=== PATIENT | male | born 1980 | race Caucasian/White ===

== ENCOUNTER 2016-12-26 03:49 | Emergency (ER) | payer SELFPAY ==
[~2016-12-26] VITALS: Ht 160 cm; Wt 69.5 kg
[2016-12-26 03:55] VITALS: Ht 160 cm; Wt 69.5 kg
--- NOTE | 2016-12-26 04:08 | ERA ---
ER Documentation Chief Complaint Date/Time DATE: 12/26/16 TIME: 04:08 Chief Complaint Suicidal thought HPI The patient is 36-year-old male, presenting to the ER because of suicidal thoughts. He believes that somebody is going to hurt him. He has been drinking and doing cocaine. He is very evasive during history. The mother stated that he was suicidal and hallucinated. He also complained of minimal epigastric abdominal pain intermittently for the last 3 weeks, denies nausea, vomiting, dysuria, diarrhea, constipation Past medical/surgical history: None ROS All systems reviewed and are negative except as per history of present illness. Allergies Allergies: Coded Allergies: No Known Drug Allergies (Verified Allergy, Unknown, 12/26/16) Physical Exam Vitals Vital Signs Date Time Temp Pulse Resp B/P Pulse Ox O2 Delivery O2 Flow Rate FiO2 12/26/16 03:55 98.6 89 20 159/90 97 Physical Exam Const: No acute distress. Head: Atraumatic. Eyes: Normal Conjunctiva. ENT: Normal External Ears, Nose and Mouth. Neck: Full range of motion. No meningismus. Resp: Clear to auscultation bilaterally. Cardio: Regular rate and rhythm, no murmurs. Abd: Soft, non distended, normal bowel sounds, non tender. Skin: No petechiae or rashes. Back: No midline or flank tenderness. Ext: No cyanosis, or edema. Neur: Awake and alert. No focal deficit Psych: Normal Mood and Affect. Result Diagram: 12/26/16 0432 Results 24 hrs Laboratory Tests Test 12/26/16 04:32 White Blood Count 9.310^3/ul Red Blood Count 5.0210^6/ul Hemoglobin 15.0g/dl Hematocrit 44.2% Mean Corpuscular Volume 88.0fl Mean Corpuscular Hemoglobin 29.9pg Mean Corpuscular Hemoglobin Concent 33.9g/dl Red Cell Distribution Width 12.5% Platelet Count 69702^3/UL Mean Platelet Volume 9.6fl Neutrophils % 66.2% Lymphocytes % 23.4% Monocytes % 7.7% Eosinophils % 1.8% Basophils % 0.5% Nucleated Red Blood Cells % 0.0/100WBC Neutrophils # 6.210^3/ul Lymphocytes # 2.210^3/ul Monocytes # 0.710^3/ul Eosinophils # 0.210^3/ul Basophils # 0.110^3/ul Nucleated Red Blood Cells # 0.010^3/ul Current Medications Medications (Trade) Dose Ordered Sig/Milena Route PRN Reason Start Time Stop Time Status Last Admin Dose Admin Pantoprazole (Protonix Iv) 40 mg ONCE ONCE IV 12/26/16 04:30 12/26/16 04:31 DC 12/26/16 04:53 Morphine Sulfate (morphine) 2 mg ONCE ONCE IV 12/26/16 04:30 12/26/16 04:31 DC 12/26/16 04:53 Ondansetron HCl (Zofran Inj) 4 mg ONCE STAT IV 12/26/16 04:12 12/26/16 04:15 DC 12/26/16 04:53 Procedures/MDM MEDICAL MAKING DECISION: The patient is a 36-year-old male, presenting with acute psychosis, most likely drug-induced psychosis. He now does not complain of abdominal pain. The differential diagnoses considered include but are not limited to drug- induced psychosis, psychosis, psychiatric illness, anxiety attack, panic attack Departure Diagnosis: Primary Impression: Psychosis Condition: Stable Comments The labs are pending, he will be evaluated by telepsychiatrist The patient's blood pressure was elevated (>120/80) but appears stable without evidence of hypertension emergency or urgency. The patient was counseled about the risks of hypertension and urged to pursue outpatient monitoring and therapy within a week with their primary care physician. EILEEN ZAMBRANO MD December 26, 2016 04:08
[2016-12-26] MEDS ORDERED: ONDANSETRON 4 MG INJ IV STA (04:12)
[2016-12-26] MEDS ORDERED: PANTOPRAZOLE 40 MG INJ IV ONE (04:30)
[2016-12-26] MEDS ORDERED: morphine 2 MG INJ IV ONE (04:30)
[2016-12-26 04:59] LABS: ADD SCAN DIFF NO
[2016-12-26 05:01] LABS: BASOPHIL # 0.1 10^3/ul (0.0-0.1); BASOPHILS % 0.5 % (0.0-2.0); EOSINOPHILS # 0.2 10^3/ul (0.0-0.5); EOSINOPHILS % 1.8 % (0.0-7.0); HEMATOCRIT 44.2 % (42.0-52.0); LYMPHOCYTES # 2.2 10^3/ul (0.8-2.9); LYMPHOCYTES % 23.4 % (15.0-51.0); MEAN CORPUSCULAR HEMOGLOBIN 29.9 pg (29.0-33.0); MEAN CORPUSCULAR HGB CONC 33.9 g/dl (32.0-37.0); MEAN PLATELET VOLUME 9.6 fl (7.4-10.4); MONOCYTE # 0.7 10^3/ul (0.3-0.9); MONOCYTES % 7.7 % (0.0-11.0); NEUTROPHIL # 6.2 10^3/ul (1.6-7.5); NEUTROPHILS % 66.2 % (39.0-77.0); PLATELET COUNT 311 10^3/UL (140-415); RED BLOOD COUNT 5.02 10^6/ul (4.70-6.10); RED CELL DISTRIBUTION WIDTH 12.5 % (11.5-14.5); WHITE BLOOD COUNT 9.3 10^3/ul (4.8-10.8)
[2016-12-26 05:31] LABS: ALBUMIN 4.4 g/dl (3.3-4.9); CHLORIDE 104 mmol/L (97-110); POTASSIUM 3.5 mmol/L (3.5-5.1); SODIUM 143 mmol/L (135-144)
[2016-12-26 05:33] LABS: CREATININE 0.87 mg/dl (0.61-1.24)
[2016-12-26 05:34] LABS: ALANINE AMINOTRANSFERASE 48 IU/L (13-69); ALBUMIN/GLOBULIN RATIO 1.25; ALKALINE PHOSPHATASE 93 IU/L (42-121); ANION GAP 17 (8-16); ASPARTATE AMINO TRANSFERASE 28 IU/L (15-46); BILIRUBIN,INDIRECT 0.3 mg/dl (0-1.1); BILIRUBIN,TOTAL 0.3 mg/dl (0.2-1.3); BLOOD UREA NITROGEN 16 mg/dl (7-20); CALCIUM 9.4 mg/dl (8.4-10.2); CARBON DIOXIDE 26 mmol/L (21-31); GLUCOSE 111 mg/dl (70-220); TOTAL PROTEIN 7.9 g/dl (6.1-8.1)
[2016-12-26 05:38] LABS: ETHANOL < 10.0 mg/dl
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
[2016-12-26] MEDS ORDERED: LORAZEPAM 1 MG TAB PO ONE (06:30)
[2016-12-26 09:54] LABS: BARBITURATES NEGATIVE (NEGATIVE); BENZODIAZEPINES NEGATIVE (NEGATIVE); CANNABINOIDS POSITIVE (NEGATIVE); COCAINE NEGATIVE (NEGATIVE); OPIATES POSITIVE (NEGATIVE)
[2016-12-26 12:10] VITALS: BP 152/86; PULSE 65; RESP 18; TEMP 98.5
--- NOTE | 2016-12-26 14:17 | QN ---
Documentation Comment HPI: 36-year-old man who admitted to methamphetamine abuse here for psychiatric evaluation. During my evaluation this morning he had no complaints of suicidal homicidal ideation and states he felt much better and wanted to go home. His mother was at the bedside Past medical history: Drug abuse Physical exam: GENERAL: Well-developed, well-nourished, well-hydrated, in no apparent distress , looks nontoxic in appearance HEENT: Moist mucous membranes, pink conjunctiva, no cervical spine tenderness or step-off deformities, no goiter, no jaundice or icterus, extraocular movements intact without pain. No submandibular induration, and no pharyngeal erythema NEURO: Alert and oriented 3, cranial nerves II through XII intact bilaterally, pupils equal round reactive to light, no focal deficits or facial asymmetry, sensation intact distally Strength 5/5 in upper and lower extremities bilaterally CARDIAC: Regular rate and rhythm, no murmurs rubs or gallops LUNGS: Clear bilaterally no wheezing crackles or stridor ABDOMEN: Soft nontender, no guarding, no rigidity, no rebound, no psoas sign no obturator sign. Normoactive bowel sounds SKIN: Warm and dry to touch, no abrasions, contusions, or hematomas, no lacerations, no ecchymosis, no target lesions, and without ulcers EXTREMITIES: No clubbing cyanosis or edema, calves are bilaterally symmetrical, no Homans sign, no popliteal cord sign. Distal pulses equal and bilateral PSYCH: Normal affect without agitation or irritability Medical decision making: [employer] speech language pathologist saw the patient at the bedside, spoke to him at length and his mother who was at the bedside. Recommendation was for drug abuse and substance abuse program as an outpatient and to follow-up with his primary care physician. No acute psychiatric intervention was indicated as patient's symptoms have resolved and he has no history of psychiatric illness or psychiatric admission. Patient feels much better at this time, and vital signs are normal, symptoms have improved. I did give strict instructions to return to the ED if symptoms continue or worsen, patient will otherwise follow-up with primary care physician. Patient understood instructions and agreed to plan. Disclaimer: Inadvertent spelling or grammatical errors are likely due to EHR/ dictation software use and do not reflect on the overall quality of patient care. Diagnostic impression: #1) acute methamphetamine abuse and intoxication MARY COMER MD December 26, 2016 14:17
[2016-12-26 22:23] LABS: ADD UMIC NO; URINE BILIRUBIN (Dip) NEGATIVE (NEGATIVE); URINE BLOOD (Dip) NEGATIVE (NEGATIVE); URINE COLOR LT. YELLOW (YELLOW); URINE GLUCOSE (Dip) NEGATIVE (NEGATIVE); URINE KETONES (Dip) NEGATIVE (NEGATIVE); URINE LEUKOCYTE ESTERASE (Dip) NEGATIVE (NEGATIVE); URINE NITRITE (Dip) NEGATIVE (NEGATIVE); URINE TOTAL PROTEIN (Dip) NEGATIVE (NEGATIVE); URINE UROBILINOGEN (Dip) 0.2 E.U./dL (0.1-1.0)
== END 2016-12-26 12:50 | disposition home or self-care (01) ==
LOC: E/R 03:49
DX: F29 Unspecified psychosis not due to a substance or known physiological condition (principal)
CPT/HCPCS: 36415; 80053; 80306; 80307; 81003; 83690; 85025; 96374; 96375; 99284; C9113; J2270; J2405